=== PATIENT | male | born 1955 | race Caucasian/White ===

== ENCOUNTER 2019-06-16 07:55 | Inpatient (IN) ==
[2019-06-16] MEDS ORDERED: ONDANSETRON INJ 2 MG/ML 2 ML VIAL IV PRN (08:18)
[2019-06-16] MEDS ORDERED: ALUMINUM/MAGNESIUM SUSP 30 ML UDC PO PRN (08:18)
[2019-06-16] MEDS ORDERED: ACETAMINOPHEN 325 MG TAB PO PRN (08:18)
[2019-06-16] MEDS ORDERED: MAGNESIUM HYDROXIDE SUSP 30 ML UDC PO PRN (08:18)
[2019-06-16] MEDS ORDERED: POLYETHYLENE (MIRALAX) 17 GM PACK PO PRN (08:18)
[2019-06-16] MEDS ORDERED: ZOLPIDEM TARTRATE 5 MG TAB PO PRN (08:18)
[2019-06-16] MEDS ORDERED: APIXABAN 2.5 MG TAB PO SCH (09:00)
[2019-06-16] MEDS ORDERED: ASPIRIN 325 MG ECTAB PO SCH (09:00)
[2019-06-16] MEDS: MULTIVITAMIN TAB PO SCH (09:37)
[2019-06-16] MEDS: ASPIRIN 325 MG ECTAB PO SCH (09:37)
[2019-06-16] MEDS: APIXABAN 5 MG TABLET PO SCH ×2 (09:37→20:20)
[2019-06-16 09:39] LABS: Creatinine Clr Calc Pharmacy 121.9 ml/min; Est GFR (African American) 105.5
[2019-06-16 09:44] LABS: Basophils # (auto) 0.01 K/uL (0-0.2); Basophils % (auto) 0.2 %; Eosinophils % (auto) 3.1 %; Hematocrit (blood only) 43.8 % (42-52); Hemoglobin 14.8 g/dL (14.0-18.0); Immature Granulocytes # (auto) 0.02 K/uL (0.00-0.02); Immature Granulocytes % (auto) 0.3 %; Lymphocytes # (auto) 2.07 K/uL (1.2-3.4); Lymphocytes % (auto) 32.4 %; Mean Corpuscular Hgb Conc 33.8 g/dL (32-36); Mean Corpuscular Volume 88.5 fL (80-100); Monocytes # (auto) 0.58 K/uL (0.11-0.59); Monocytes % (auto) 9.1 %; Neutrophils # (auto) 3.51 K/uL (1.4-6.5); Neutrophils % (auto) 54.9 %; Platelet Count 159 K/uL (130-400); RDW Coefficient of Variation 13.7 % (11.5-14.5); RDW Standard Deviation 44.5 fL (36.4-46.3); Red Blood Count 4.95 M/uL (4.7-6.1); White Blood Count 6.39 K/uL (4.8-10.8)
[2019-06-16 09:49] LABS: BUN Creatinine Ratio 19.7 (10-20); Calcium 8.7 mg/dl (8.5-10.1); Creatinine Clr Calc Pharmacy 121.9 ml/min; Est GFR (African American) 105.5
[2019-06-16] MEDS: SOTALOL HCL 80 MG TAB PO SCH ×2 (10:42→18:08)
--- NOTE | 2019-06-16 14:12 | History and Physical Report ---
DATE OF ADMISSION: 06/16/2019 REASON FOR ADMISSION: Paroxysmal atrial fibrillation for sotalol loading. HISTORY OF PRESENT ILLNESS: The patient is a very pleasant 63-year-old gentleman who normally follows with Dr. Jimy Carrasco of our Cardiology practice. The patient has been dealing with symptomatic paroxysmal atrial fibrillation for a number of years now. Recently his symptoms have been increased in frequency and he was seen by Dr. Carrasco yesterday. At that time, antiarrhythmic therapy was discussed and the patient was agreeable to sotalol loading. Amiodarone treatment was ruled out as a possibility given the patient's history of thyroid issues. He presents today for initiation of sotalol loading. Currently, he states that he is feeling well, but notes that he has been having atrial fibrillation off and on for several days now without any significant rhyme or reason. When it does occur, he feels his heart racing and he gets a little lightheaded and tired with it. Otherwise, he states he has been taking his medications as directed. He did not take his metoprolol or Cardizem as he was directed not to today, but he did take his aspirin and Eliquis. PAST SURGICAL HISTORY: 1. Colonoscopies. 2. Neck mass removal. MEDICAL ILLNESSES: 1. Paroxysmal atrial fibrillation. 2. History of hyperthyroidism. 3. Chronic Lyme disease. 4. GERD. FAMILY HISTORY: Noncontributory. SOCIAL HISTORY: Denies any tobacco use. Drinks occasional alcohol. Denies any recreational drug use. He is and lives at home with his . REVIEW OF SYSTEMS: As per HPI, all other review of systems reviewed and negative at this time. ALLERGIES: No known drug allergies. MEDICATIONS AN OUTPATIENT: 1. Aspirin 81 mg daily. 2. Cardizem 30 mg b.i.d. 3. Metoprolol succinate 100 mg b.i.d. 4. Eliquis 5 mg b.i.d. PHYSICAL EXAMINATION: VITALS: Temperature 36.3, pulse 60, respiratory rate 12, blood pressure 134/88. GENERAL: Awake, alert, oriented x3, in no acute distress. HEENT: Normocephalic, atraumatic. Pupils equal, round, and reactive to light and accommodation. Extraocular muscles intact. Anicteric sclerae. Moist mucous membranes. NECK: No JVD, no bruit. CARDIOVASCULAR: Regular. Positive S4. Normal S1 and S2. No S3. No murmurs or rubs. PULMONARY: Clear to auscultation bilaterally. No rales, rhonchi or wheezing. ABDOMEN: Bowel sounds x4, soft. No rebound, guarding, tenderness. No organomegaly. EXTREMITIES: No clubbing, cyanosis or edema. +2 pedal pulses bilaterally. SKIN: Warm and dry. TEST RESULTS: A 12-lead EKG performed today independently reviewed at this time shows normal sinus rhythm at 63 beats per minute with a premature ventricular complex, normal axis and normal intervals with a QTC of 466 milliseconds. LABORATORY STUDIES OF SIGNIFICANCE: Sodium 139, potassium 4, BUN 17, creatinine of 0.86. IMPRESSION AND PLAN: Today, the patient will be admitted as planned for sotalol loading. He will be started on 80 mg b.i.d. and normal protocol will be followed. He will obtain daily EKGs to follow his QT interval and remain on continuous telemetry monitoring for the first 72 hours to evaluate for any possible ventricular events. The pros and cons with the possible side effects of sotalol were once again discussed with the patient and his and they are both agreeable and wished to proceed. So, the patient's metoprolol and Cardizem will not be restarted. He will continue on aspirin 81 mg daily along with his Eliquis 5 mg b.i.d.
[2019-06-17] MEDS ORDERED: dilTIAZem HCl 5 MG/ML 5 ML VIAL IV STA (08:49)
[2019-06-17 08:54] LABS: BUN Creatinine Ratio 18.2 (10-20); Calcium 9.2 mg/dl (8.5-10.1); Creatinine Clr Calc Pharmacy 95.3 ml/min; Est GFR (African American) 81.2; Est GFR (Non-African American) 70.1; Magnesium 2.3 mg/dl (1.8-2.4)
[2019-06-17] MEDS: MULTIVITAMIN TAB PO SCH (09:09)
[2019-06-17] MEDS: APIXABAN 5 MG TABLET PO SCH ×2 (09:10→20:03)
[2019-06-17] MEDS: dilTIAZem HCl 125 MG in DEXTROSE 5% 100 ML IV SCH ×3 (09:21→20:02)
[2019-06-17] MEDS: ASPIRIN 325 MG ECTAB PO SCH (10:03)
[2019-06-17] MEDS: ASPIRIN 81 MG ECTAB PO SCH (10:38)
[2019-06-17] MEDS: SOTALOL HCL 80 MG TAB PO SCH ×2 (11:35→20:03)
--- NOTE | 2019-06-17 16:12 | Cardiology Progress Note ---
Date of Service June 17, 2019 Assessment & Plan (1) Atrial fibrillation with rapid ventricular response: once again lapsed into afib overnight rates elevated, will initiate cardizem gtt for rate control and hopefully facilitate cardioversion to sinus cont Eliquis if remains in afib overnight, will proceed with DC cardioversion in AM npo after midnight (2) Encounter for monitoring anti-arrhythmic therapy: Pt initiated on Sotalol load protocol unfortunately, QTc this AM of 546ms no significant ventricular ectopy on monitor EKG repeated with rates in 90's and QTc returned to 451 ms, which is lower than presenting baseline will decrease Sotalol dose to 40mg bid and cont to follow closely pt in agreement with plan Subjective Pt seen and examined, did go back into symptomatic afib overnight, rates 100's- 110's. Denies cp, sob, lightheadedness or dizziness tele reviewed: afib with rvr EKG: afib at 109 bpm with QTc of 546 ms Review of Systems Review of Systems: All systems reviewed & are unremarkable except as noted in HPI & below Physical Exam Physical Exam: General: Awake, alert and oriented x 3. No acute distress. HEENT: Normocephalic, atraumatic. Pupils equal, round and reactive to light and accommodation. Extraocular muscles are intact. Anicteric sclera. Moist mucous membranes. Neck: No JVD. No bruit. Cardiovascular: irregularly irregular, unable to appreciate murmur, rub or gallop. Pulmonary: Clear to auscultation bilaterally. No rales, rhonchi, or wheezing. Abdomen: Bowel sounds x 4, soft. No rebound, guarding or tenderness. No organomegaly. Extremities: No clubbing, cyanosis or edema. +2 pedal pulses bilaterally. Skin: Warm and dry. Results & Data Vital Signs (Past 12 Hours) Vital Signs Temp Pulse Pulse Resp BP BP Pulse Ox 06/17/19 15:57 69 06/17/19 15:28 36.6 C 69 22 108/70 97 06/17/19 11:03 36.4 C L 85 20 121/83 99 06/17/19 10:00 84 16 129/83 98 06/17/19 07:26 36.4 C L 91 H 17 138/95 99 06/17/19 07:13 87
[2019-06-18] MEDS: ASPIRIN 81 MG ECTAB PO SCH (08:12)
[2019-06-18] MEDS: dilTIAZem HCl 125 MG in DEXTROSE 5% 100 ML IV SCH (08:12)
[2019-06-18] MEDS: MULTIVITAMIN TAB PO SCH (08:13)
[2019-06-18] MEDS: SOTALOL HCL 80 MG TAB PO SCH ×2 (08:13→21:12)
[2019-06-18] MEDS: APIXABAN 5 MG TABLET PO SCH ×2 (08:14→21:12)
[2019-06-18] MEDS ORDERED: fentaNYL citrate 100 MCG/2 ML VIAL ONE (09:50)
[2019-06-18] MEDS ORDERED: MIDAZOLAM HCL 1 MG/ML 2ML VIAL ONE ×2 (09:50→09:51)
--- NOTE | 2019-06-18 09:56 | History & Physical Bridge Note ---
Date of Service June 18, 2019 History & Physical Bridge Note I have examined the patient, reviewed the History & Physical and in the interval since the performance of the History & Physical I have noted the following changes of clinical significance: no changes noted
--- NOTE | 2019-06-18 09:57 | Pre Anesthesia Assessment ---
Date of Service June 18, 2019 Pre Sedation Assessment Vital Signs Temp Pulse Pulse Resp BP BP Pulse Ox 06/18/19 09:41 16 96 06/18/19 08:02 36.7 C 20 121/89 97 06/18/19 07:57 115 H 06/18/19 06:42 135 H 117/68 06/18/19 03:00 36.4 C L 84 16 128/90 97 06/17/19 23:58 37.0 C 68 16 131/79 96 06/17/19 19:33 36.8 C 91 H 18 118/79 93 06/17/19 15:57 69 06/17/19 15:28 36.6 C 69 22 108/70 97 06/17/19 11:03 36.4 C L 85 20 121/83 99 06/17/19 10:00 84 16 129/83 98 Pre-Sedation Airway Assessment Smoking Status: Former smoker Hx Sleep Apnea: No Short, Thick Neck: No Thyromental Distance: > or= 3.5 Finger Breadths Oral Cavity: + WNL Mallampati Class: II ASA: ASA2 NPO Status Date of Last Intake of Fluids: 06/17/19 Time of Last Intake of Fluids: 23:59 Date of Last Intake of Solid Food: 06/17/19 Time of Last Intake of Solid Foods: 23:59 Notes The planned sedation has been discussed with the patient. Informed Consent was obtained. I have identified the patient, determined the appropriateness of sedation and have assessed the patient immediately prior to the procedure. All medicine(s) and interventions are by my order.
--- NOTE | 2019-06-18 10:20 | Post Anesthesia Assessment ---
Date of Service June 18, 2019 Post Sedation Assessment Vital Signs Temp Pulse Pulse Resp BP Pulse Ox 06/18/19 09:41 16 96 06/18/19 08:02 36.7 C 20 121/89 97 06/18/19 07:57 115 H 06/18/19 06:42 135 H 117/68 06/18/19 03:00 36.4 C L 84 16 128/90 97 06/17/19 23:58 37.0 C 68 16 131/79 96 06/17/19 19:33 36.8 C 91 H 18 118/79 93 06/17/19 15:57 69 06/17/19 15:28 36.6 C 69 22 108/70 97 06/17/19 11:03 36.4 C L 85 20 121/83 99 Post Sedation Plan On clinical assessment, the patient appears to have tolerated the sedation without complications. Patient is recovering as anticipated. Patient will continue to be monitored by nursing and may be discharged when sedation discharge criteria are met per below protocol. Upon Completions of procedure and additional 15 minutes continue every 5 minute vital signs and the P.A.R. score; then discharge to a Phase I or Fast Track to Phase II per the following guidelines: * Discharge Patient to appropriate Phase II area if PAR is 8 or greater or return to pre- procedure baseline. The post - procedure orders will be as directed. * If PAR score is less than 8 or not return to pre-procedure baseline then patient will follow Phase I monitoring till PAR is reached for Phase II. The Phase I may be done in procedure room or may call to secure a Phase I area. * If naloxone or flumazenil are used for reversal, hold in Phase I for continued monitoring from when last reversal dose was given for a minimum of 60 minutes or longer pending the nurse and/or physician discretion of patient condition before discharge to Phase II. Please call the Sedation Physician to re-evaluate and complete post-note for discharge to Phase II area. Do NOT discharge from procedure sedation or Phase 1 until post- sedation evaluation note is complete by procedure /sedation MD Sedation Discharge Instructions to be given to the patient at discharge to home.
--- NOTE | 2019-06-18 10:20 | Operative Report ---
Post Operative Report Pre & Post Diagnosis Operation Date: 06/18/19 09:30 <No data on this case meets the specified criteria> Procedure Operation Date: 06/18/19 09:30 <No data on this case meets the specified criteria> Surgeon Bobby Elizabeth, DO Railroad Brake Repairer Kandice RN, [place] RN Estimated Blood Loss 0 Findings Consistent with Post-Op Diagnosis Specimens none Description of Procedure Informed consent obtained pt prepped in usual manner adequate moderate sedation achieved first attempt at 300J of synchronized rhythm confirmed: afib pt repositioned second attempt at 360J again unsuccessful, afib confirmed with 12 lead further sedation given third attempt with 360J of synchronized energy was successful at conversion to sinus Total sedation given Fentanyl 100mcg and Versed 4mg pt tolerated well recover per protocol start time 0959 stop time 1014 I attest to the content of the Intraoperative Record and any orders documented therein. Any exceptions are noted below.
--- NOTE | 2019-06-18 12:49 | Cardiology Progress Note ---
Date of Service June 18, 2019 Assessment & Plan (1) Atrial fibrillation with rapid ventricular response: s/p successful cardioversion symptom free now in sinus will cont sotalol "loading" cont to monitor overnight d/c in AM cont sotalol 40mg daily and Eliquis 5mg bid (2) Encounter for monitoring anti-arrhythmic therapy: Pt initiated on Sotalol load protocol QTc peak of 546ms, now resolved no significant ventricular ectopy on monitor cont sotalol 40mg daily Subjective Pt seen and examined prior to cardioversion, states that he had a terrible night and "it's all your fault! your drugs aren't working". I explained the pathophysiology of atrial fibrillation and antiarrhythmic introduction in great detail. Pt tolerated cardioversion well. Successful cardioversion to sinus. After cardioversion: "I feel so much better." tele reviewed: afib with variable rates overnight ekg s/p cardioversion: sinus fr[place] with QTc of 453ms Review of Systems Review of Systems: All systems reviewed & are unremarkable except as noted in HPI & below Physical Exam Physical Exam: Physical Exam: General: Awake, alert and oriented x 3. No acute distress. HEENT: Normocephalic, atraumatic. Pupils equal, round and reactive to light and accommodation. Extraocular muscles are intact. Anicteric sclera. Moist mucous membranes. Neck: No JVD. No bruit. Cardiovascular: Regular. No S-4. Normal S-1 and S-2. No S-3. No murmurs, rubs or gallops. Pulmonary: Clear to auscultation bilaterally. No rales, rhonchi, or wheezing. Abdomen: Bowel sounds x 4, soft. No rebound, guarding or tenderness. No organomegaly. Extremities: No clubbing, cyanosis or edema. +2 pedal pulses bilaterally. Skin: Warm and dry. Results & Data Vital Signs (Past 12 Hours) Vital Signs Temp Pulse Pulse Pulse Resp BP Pulse Ox 06/18/19 11:40 69 16 108/75 96 06/18/19 11:25 64 16 109/78 95 06/18/19 11:16 65 06/18/19 11:10 69 16 98/72 L 96 06/18/19 10:57 36.6 C 65 18 125/86 96 06/18/19 10:45 64 20 112/70 97 06/18/19 10:40 62 16 108/70 99 06/18/19 10:35 61 16 103/71 98 06/18/19 10:30 62 14 99/76 L 94 06/18/19 10:25 55 L 12 98/67 L 97 06/18/19 10:20 65 16 98/63 L 94 06/18/19 10:16 64 16 101/65 94 06/18/19 10:10 81 14 117/74 94 06/18/19 10:05 78 14 119/80 96 06/18/19 10:03 70 14 115/70 96 06/18/19 10:01 85 16 134/74 95 06/18/19 09:59 96 H 16 140/90 98 06/18/19 09:41 16 96 06/18/19 08:02 36.7 C 20 121/89 97 06/18/19 07:57 115 H 06/18/19 06:42 135 H 117/68 06/18/19 03:00 36.4 C L 84 16 128/90 97
[2019-06-19] MEDS: APIXABAN 5 MG TABLET PO SCH ×2 (07:46→21:02)
[2019-06-19] MEDS: MULTIVITAMIN TAB PO SCH (07:47)
[2019-06-19] MEDS: SOTALOL HCL 80 MG TAB PO SCH (07:47)
[2019-06-19] MEDS: ASPIRIN 81 MG ECTAB PO SCH (07:48)
--- NOTE | 2019-06-19 09:36 | Cardiology Progress Note ---
Date of Service June 19, 2019 Assessment & Plan (1) Atrial fibrillation with rapid ventricular response: As outlined, the patient is maintaining sinus rhythm and no other significant arrhythmias. He is a very anxious person and is focused on his QTC in regard to the sotalol. After long discussion with the patient he would prefer to be on his previous medications, metoprolol and diltiazem, rather than continuing with the sotalol. As mentioned above he is a very anxious person and is eliciting some obsessive behavior. I will discontinue the sotalol today. Unfortunately he already got a morning dose, so I will not start metoprolol or diltiazem until later this evening. He is agreeable to remain in the hospital overnight. He is not symptomatic with his atrial fibrillation so I am comfortable with leaving him with rate control and anticoagulation. If he feels up to it, then tomorrow, he will be discharged home to follow-up with his primary purchasing specialist Dr. Carrasco. He will then discuss with Dr. Carrasco the possibility of another antiarrhythmic or evaluation by the electrophysiology service. (2) Encounter for monitoring anti-arrhythmic therapy: Subjective The patient is very anxious and high strung. He is concerned about his QTC roll which is 496 this morning. He has been on the Internet and reading on [employer]. Overnight he has had no significant arrhythmias. He is maintaining sinus rhythm. Review of Systems Review of Systems: All systems reviewed & are unremarkable except as noted in HPI & below No additional information. Physical Exam Physical Exam: General: no acute distress and stated age Head: normocephalic, no masses, lesions, tenderness or abnormalities Eyes: conjunctiva are pink and non-injected, sclera clear Neck: supple, no adenopathy, no bruits, normal jugular venous pulse, no hepatojugular reflux Chest: normal shape and normal respiratory effort Lungs: clear to auscultation and percussion Cardiac Exam: - regular rate & rhythm, no murmurs gallops or rubs - normal S1, normal S2 Pulses: 2(+) throughout Abdomen: abdomen soft, non-tender, no abnormal masses and no hepatosplenomegaly Musculoskeletal: no gait disturbance, no joint inflammation, no deforming arthritis Extremities: no edema and no cyanosis Neuro: grossly normal exam Results & Data Vital Signs (Past 12 Hours) Vital Signs Temp Pulse Pulse Resp BP BP Pulse Ox 06/19/19 09:07 73 08/10/19 07:36 36.9 C 68 18 159/100 H 97 06/19/19 04:04 36.4 C L 65 19 133/81 99 06/19/19 00:05 37.0 C 72 19 136/77 98 Medications Administered Current Inpatient Medications Apixaban (Eliquis) 5 mg PO BID [facility] Stop: 07/16/19 08:59 Last Admin: 06/19/19 07:46 Dose: 5 mg Documented by: Aspirin (Ecotrin Ectab) 81 mg PO QAM [facility]ABIAN Stop: 07/17/19 10:14 Last Admin: 06/19/19 07:48 Dose: 81 mg Documented by: Metoprolol Succinate (Toprol Xl) 50 mg PO BID [facility] Stop: 07/19/19 20:59
[2019-06-19] MEDS: METOPROLOL SUCC 50MG EXT REL TAB PO SCH (21:02)
[2019-06-19] MEDS ORDERED: ZOLPIDEM TARTRATE 5 MG TAB PO ONE (21:15)
--- NOTE | 2019-06-20 09:16 | Discharge Summary ---
Date of Service June 20, 2019 Admission HPI Per Admitting Provider Paroxysmal atrial fibrillation Admission Exam Per Admitting Provider General: no acute distress and stated age Head: normocephalic, no masses, lesions, tenderness or abnormalities Eyes: conjunctiva are pink and non-injected, sclera clear Neck: supple, no adenopathy, no bruits, normal jugular venous pulse, no hepatojugular reflux Chest: normal shape and normal respiratory effort Lungs: clear to auscultation and percussion Cardiac Exam: - regular rate & rhythm, no murmurs gallops or rubs - normal S1, normal S2 Pulses: 2(+) throughout Abdomen: abdomen soft, non-tender, no abnormal masses and no hepatosplenomegaly Musculoskeletal: no gait disturbance, no joint inflammation, no deforming arthritis Extremities: no edema and no cyanosis Neuro: grossly normal exam Principal Diagnosis Paroxysmal atrial fibrillation, for the start of antiarrhythmic therapy Discharge Exam General: no acute distress and stated age Head: normocephalic, no masses, lesions, tenderness or abnormalities Eyes: conjunctiva are pink and non-injected, sclera clear Neck: supple, no adenopathy, no bruits, normal jugular venous pulse, no hepatojugular reflux Chest: normal shape and normal respiratory effort Lungs: clear to auscultation and percussion Cardiac Exam: - regular rate & rhythm, no murmurs gallops or rubs - normal S1, normal S2 Pulses: 2(+) throughout Abdomen: abdomen soft, non-tender, no abnormal masses and no hepatosplenomegaly Musculoskeletal: no gait disturbance, no joint inflammation, no deforming arthritis Extremities: no edema and no cyanosis Neuro: grossly normal exam Discharge Data Allergies Allergy/AdvReac Type Severity Reaction Status Date / Time No Known Allergies Allergy Verified 05/11/19 15:53 Procedures Performed Operation Date: 06/18/19 09:30 Actual Procedures p Cardioversion(Not Applicable) - Bobby Elizabeth DO Hospital Course (1) Atrial fibrillation with rapid ventricular response: The patient was admitted for the start of antiarrhythmic therapy with sotalol for paroxysmal atrial fibrillation. Unfortunately, after several dosage reductions he continued to have a prolonged QTC. The patient is very anxious and in the and did not want to continue the sotalol. After admission, he did develop atrial fibrillation and was taken for a cardioversion that successfully put him back in a normal sinus rhythm where he has stayed for several days. He is now on metoprolol XL 50 mg twice daily. He is maintaining sinus rhythm with adequate blood pressure and heart rates. He will be discharged on metoprolol XL 50 mg twice daily and Eliquis 5 mg daily. I had a discussion with him regarding aspirin therapy in this situation. There is increased risk and uncertain benefit for someone who has never had coronary artery disease or stroke. He wants continue with the aspirin at its present dosage. I will arrange follow-up for him. (2) Encounter for monitoring anti-arrhythmic therapy: Total Time Total Time Spent Total Time Spent (In Minutes): I spent approximately 30 minutes with the patient today. Discharge Plan Discharge Items Patient Disposition: Home - Self-Care Reason For Visit: SOTALOL Discharge Goals: Improve disease control Activity: Resume your previous activity Non-emergency contact: Reheat Furnace Operator Call non-emergency contact if: you have any medication questions, your symptoms worsen, your pain is unusual for you, your pain is concerning for you and you have a fever Follow-up/Referrals: Kayden Marroquin, DO [Primary Care Provider] - Diet: Heart Healthy Addtl Provider Instructions: The patient will take an extra dose of the metoprolol on days that he may have breakthrough atrial arrhythmias. Prescriptions: New metoprolol succinate 50 mg Tablet Extended Release 24 Hr 50 mg PO BID Qty: 0 RF: 0 aspirin [Ecotrin Low Strength] 81 mg Tablet,Delayed Release (Dr/Ec) 81 mg PO QAM Qty: 0 RF: 0 Continued Eliquis 5 mg Tablet 5 mg PO BID RF: 0 Discontinued aspirin 325 mg Tablet 81 mg PO DAILY Qty: 0 RF: 0 metoprolol succinate 100 mg Tablet Extended Release 24 Hr 75 mg PO BID Qty: 60 RF: 0 Stand-Alone Forms: My [facility] Discharge Orders: Discharge Order (Routine); Ordered 06/20/19 Ordered By: Fercho Ragland Admission Data Admit Date/Time: 06/16/19 08:26 Attending Provider: Bobby Elizabeth Admit Provider: Bobby Elizabeth Primary Care Provider: Kayden Marroquin Service: Telemetry Other Pending Studies at Discharge: No
[2019-06-20] MEDS: APIXABAN 5 MG TABLET PO SCH (09:19)
[2019-06-20] MEDS: METOPROLOL SUCC 50MG EXT REL TAB PO SCH (09:19)
[2019-06-20] MEDS: ASPIRIN 81 MG ECTAB PO SCH (09:19)
== END 2019-06-20 12:33 | disposition home or self-care (01) | DRG 310 ==
LOC: 2S 08:26 → 2E 06-19 21:49